=== PATIENT | female | born 1955 | race Caucasian/White ===

== ENCOUNTER 2021-05-31 20:28 | Emergency (ER) | payer MEDICARE ==
[2021-05-31] MEDS ORDERED: Sodium Chloride 0.9% 10 ML Syringe FLUSH PRN (20:33)
--- NOTE | 2021-05-31 20:35 | EDM.PDOC ---
ED HPI GENERAL MEDICAL PROBLEM - General Chief Complaint: Chest Pain Stated Complaint: CHEST PAIN Time Seen by Provider: 05/31/21 20:33 Source of Information: Reports: Patient, Family. Denies: Old Records History Limitations: Reports: Other (no old records, patient has mild dementia) - History of Present Illness INITIAL COMMENTS - FREE TEXT/NARRATIVE: 65 yo [facility] a variety of vague complaints. Malgorzata lives in [place], [place] and came back recently to visit. The sister had not seen Malgorzata for a long time and was concerned about her appearan ce/behavior/mannerisms so brought her here for eval. Maglorzata admits to use of marijuana and meth. Has a PHx of pancreatitis. Is on medications, but does not know doses or names initially except that she is prescribed lisinopril. Has some SOB, and generalized chest discomfort. Her sx's are not new today. Says she has a pHx of cirrhosis from Hep C and alcohol. Was dx in [place] where she doctors with dementia about 2 mos ago. Has been having some numbness of her extrems and her hands don't always work right over the past couple of mos. Is going home again on Friday. Has COPD. Smokes just under a pack per day. Onset: Gradual Duration: Day(s):, Waxing/Waning Location: Reports: Chest, Upper Extremity, Left, Upper Extremity, Right Quality: Reports: Ache (both shoulders) Severity: Mild Improves with: Reports: None Worsens with: Reports: None Context: Reports: Other (See HPI) Associated Symptoms: Reports: Malaise, Shortness of Breath (chronic). 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 [Unable to Verify Home Med List] 05/31/21 [History] ED ROS GENERAL - Review of Systems Review Of Systems: See Below Constitutional: Reports: Malaise HEENT: Reports: No Symptoms Respiratory: Reports: Shortness of Breath (chronic) Cardiovascular: Reports: Chest Pain (vague, diffuse) Endocrine: Reports: No Symptoms GI/Abdominal: Reports: No Symptoms : Reports: No Symptoms Musculoskeletal: Reports: Shoulder Pain (bilateral, L > R) Skin: Reports: No Symptoms Neurological: Reports: Numbness (of extrems on and off) ED EXAM, GENERAL - Physical Exam Exam: See Below Exam Limited By: Uncooperative General Appearance: Alert, No Apparent Distress, Thin Eye Exam: Bilateral Eye: Normal Inspection Ears: Normal External Exam, Normal Canal, Hearing Grossly Normal Ear Exam: Bilateral Ear: Auricle Normal, Canal Normal Nose: Normal Inspection, No Blood Throat/Mouth: Normal Inspection, Normal Lips, Normal Oropharynx, Normal Voice, No Airway Compromise Head: Atraumatic, Normocephalic Neck: Normal Inspection Respiratory/Chest: No Respiratory Distress, Lungs Clear, Normal Breath Sounds, No Accessory Muscle Use Cardiovascular: Regular Rate, Rhythm, No Edema GI/Abdominal: Normal Bowel Sounds, Soft, Other (mild diffuse tenderness). No: Non-Tender, Distended Extremities: Normal Inspection, Normal Range of Motion, No Pedal Edema. No: Non-Tender (posterior L shoulder palpably tender), Pedal Edema Neurological: Alert, Oriented, CN II-XII Intact, No Motor/Sensory Deficits. No: Normal Cognition (slow mentation) Psychiatric: Normal Affect, Normal Mood Skin Exam: Warm, Dry, Intact, Normal Color, No Rash #1 Interpretation EKG Date: 05/31/21 Time: 20:30 Rhythm: NSR Rate (Beats/Min): 78 [place]: RAD-Right [place] Deviation P-Wave: Present QRS: Normal ST-T: Normal QT: Normal Comparison: NA - No Prior EKG Course - Vital Signs Last Recorded V/S: Last Vital Signs Temp 36.1 C 05/31/21 20:33 Pulse 77 05/31/21 20:33 Resp 27 H 05/31/21 20:33 BP 172/88 H 05/31/21 20:33 Pulse Ox 98 05/31/21 20:33 - Orders/Labs/Meds Orders: Active Orders 24 hr Category Date Time Status Cardiac Monitoring [RC] .As Directed Care 05/31/21 20:29 Active Sodium Chloride 0.9% [Saline Flush] Med 05/31/21 20:33 Active 10 ml FLUSH ASDIRECTED PRN Saline Lock Insert [OM.PC] Routine Oth 05/31/21 20:33 Ordered EKG 12 Lead [EK] Routine Ther 05/31/21 20:29 Ordered Medication Orders Sodium Chloride (Sodium Chloride 0.9% 10 Ml Syringe) 10 ml FLUSH ASDIRECTED PRN PRN Reason: Keep Vein Open Labs: Laboratory Tests 05/31/21 05/31/21 05/31/21 Range/Units 20:35 20:38 20:40 WBC 4.5 (4.5-11.0) K/uL RBC 5.04 (3.30-5.50) M/uL Hgb 11.1 L (12.0-15.0) g/dL Hct 36.4 (36.0-48.0) % MCV 72 L (80-98) fL MCH 22 L (27-31) pg MCHC 31 L (32-36) % Plt Count 202 (150-400) K/uL Sodium (140-148) mmol/L Potassium (3.6-5.2) mmol/L Chloride (100-108) mmol/L Carbon Dioxide (21-32) mmol/L Anion Gap (5.0-14.0) mmol/L BUN (7-18) mg/dL Creatinine (0.6-1.0) mg/dL Est Cr Clr Drug Dosing mL/min Estimated GFR (MDRD) (>60) Glucose (74-106) mg/dL Calcium (8.5-10.1) mg/dL Troponin I (0.000-0.056) ng/mL Lipase (73-393) U/L Urine Color Yellow (YELLOW) Urine Appearance Slightly cloudy A (CLEAR) Urine pH 6.5 (5.0-8.0) Ur Specific [place] 1.020 (1.008-1.030) Urine Protein Negative (NEGATIVE) mg/dL Urine Glucose (UA) Negative (NEGATIVE) mg/dL Urine Ketones Negative (NEGATIVE) mg/dL Urine Occult Blood Small H (NEGATIVE) Urine Nitrite Negative (NEGATIVE) Urine Bilirubin Negative (NEGATIVE) Urine Urobilinogen 0.2 (0.2-1.0) EU/dL Ur Leukocyte Esterase Moderate H (NEGATIVE) Urine RBC 0-5 (0-5) Urine WBC 5-10 H (0-5) Ur Epithelial Cells Many Amorphous Sediment Few Urine Bacteria Few Urine Mucus Occasional Urine Opiates Screen Negative (NEGATIVE) Ur Oxycodone Screen Negative (NEGATIVE) Urine Methadone Screen Negative (NEGATIVE) Ur Propoxyphene Screen Negative (NEGATIVE) Ur Barbiturates Screen Negative (NEGATIVE) Ur Tricyclics Screen Negative (NEGATIVE) Ur Phencyclidine Scrn Negative (NEGATIVE) Ur Amphetamine Screen Negative (NEGATIVE) U Methamphetamines Scrn Presumptive positive H (NEGATIVE) Urine MDMA Screen Negative (NEGATIVE) U Benzodiazepines Scrn Negative (NEGATIVE) U Cocaine Metab Screen Negative (NEGATIVE) U Marijuana (THC) Screen Negative (NEGATIVE) 05/31/21 Range/Units 20:40 WBC (4.5-11.0) K/uL RBC (3.30-5.50) M/uL Hgb (12.0-15.0) g/dL Hct (36.0-48.0) % MCV (80-98) fL MCH (27-31) pg MCHC (32-36) % Plt Count (150-400) K/uL Sodium 138 L (140-148) mmol/L Potassium 3.8 (3.6-5.2) mmol/L Chloride 99 L (100-108) mmol/L Carbon Dioxide 28 (21-32) mmol/L Anion Gap 14.8 H (5.0-14.0) mmol/L BUN 16 (7-18) mg/dL Creatinine 1.1 H (0.6-1.0) mg/dL Est Cr Clr Drug Dosing 49.58 mL/min Estimated GFR (MDRD) 50 L (>60) Glucose 100 (74-106) mg/dL Calcium 9.2 (8.5-10.1) mg/dL Troponin I < 0.017 (0.000-0.056) ng/mL Lipase 160 (73-393) U/L Urine Color (YELLOW) Urine Appearance (CLEAR) Urine pH (5.0-8.0) Ur Specific [place] (1.008-1.030) Urine Protein (NEGATIVE) mg/dL Urine Glucose (UA) (NEGATIVE) mg/dL Urine Ketones (NEGATIVE) mg/dL Urine Occult Blood (NEGATIVE) Urine Nitrite (NEGATIVE) Urine Bilirubin (NEGATIVE) Urine Urobilinogen (0.2-1.0) EU/dL Ur Leukocyte Esterase (NEGATIVE) Urine RBC (0-5) Urine WBC (0-5) Ur Epithelial Cells Amorphous Sediment Urine Bacteria Urine Mucus Urine Opiates Screen (NEGATIVE) Ur Oxycodone Screen (NEGATIVE) Urine Methadone Screen (NEGATIVE) Ur Propoxyphene Screen (NEGATIVE) Ur Barbiturates Screen (NEGATIVE) Ur Tricyclics Screen (NEGATIVE) Ur Phencyclidine Scrn (NEGATIVE) Ur Amphetamine Screen (NEGATIVE) U Methamphetamines Scrn (NEGATIVE) Urine MDMA Screen (NEGATIVE) U Benzodiazepines Scrn (NEGATIVE) U Cocaine Metab Screen (NEGATIVE) U Marijuana (THC) Screen (NEGATIVE) Meds: Medications Generic Name Dose Route Start Last Admin Trade Name Freq PRN Reason Stop Dose Admin Sodium Chloride 10 ml 05/31/21 20:33 Sodium Chloride 0.9% 10 Ml Syringe FLUSH ASDIRECTED PRN Keep Vein Open Discontinued Medications Generic Name Dose Route Start Last Admin Trade Name Freq PRN Reason Stop Dose Admin Hydrocodone Bitart/Acetaminophen 1 tab 05/31/21 21:32 05/31/21 21:35 Acetaminophen/Hydrocodone 325-5 Mg Tab PO 05/31/21 21:33 1 tab ONETIME ONE Administration Departure - Departure Time of Disposition: 21:36 Disposition: Home, Self-Care 01 Condition: Fair Clinical Impression: Multiple somatic complaints Referrals: PCP,None [Primary Care Provider] - Forms: ED Department Discharge Additional Instructions: Take your tests from today's visit and bring them along to see your doctor DEREK. Return if you are a lot worse. Sepsis Event Note (ED) - Focused Exam Vital Signs: Vital Signs Temp Pulse Resp BP Pulse Ox 05/31/21 20:33 36.1 C 77 27 H 172/88 H 98 - My Orders Last 24 Hours: My Active Orders 05/31/21 20:29 Cardiac Monitoring [RC] .As Directed EKG 12 Lead [EK] Routine 05/31/21 20:33 Sodium Chloride 0.9% [Saline Flush] 10 ml FLUSH ASDIRECTED PRN Saline Lock Insert [OM.PC] Routine - Assessment/Plan Last 24 Hours: My Active Orders 05/31/21 20:29 Cardiac Monitoring [RC] .As Directed EKG 12 Lead [EK] Routine 05/31/21 20:33 Sodium Chloride 0.9% [Saline Flush] 10 ml FLUSH ASDIRECTED PRN Saline Lock Insert [OM.PC] Routine
[2021-05-31] MEDS ORDERED: Acetaminophen/HYDROcodone 325-5 MG Tab PO ONE (21:32)
== END 2021-05-31 21:48 | disposition home or self-care (01) ==
LOC: JP.ED 20:28
DX: R07.89 Other chest pain (principal); Z88.8 Allergy status to other drugs, medicaments and biological substances
CPT/HCPCS: 36415; 80048; 80305; 81001; 83690; 84484; 85027; 93005; 99285; A9270